=== PATIENT | female | born 1995 | race Caucasian/White ===

== ENCOUNTER 2016-12-06 19:44 | Emergency (ER) | payer BC ==
[~2016-12-06] VITALS: Ht 157.5 cm; Wt 56.7 kg
[2016-12-06 19:51] VITALS: BP 127/79
[2016-12-06] MEDS ORDERED: PENICILLIN G BENZATHINE 2.4 MMU/4 ML ML IM ONE ×2 (20:00→20:01)
== END 2016-12-06 20:59 | disposition home or self-care (01) ==
LOC: ER 19:49
DX: A53.9 Syphilis, unspecified (principal)
CPT/HCPCS: 96372; 99283; A4606; J0558; Z7610